=== PATIENT | male | born 1990 | race Caucasian/White ===

== ENCOUNTER 2017-11-03 07:30 | Emergency (ER) | payer MEDICAID | END 2017-11-03 08:03 | disposition home or self-care (01) | LOC: D.ER 07:30 | DX: K02.9 Dental caries, unspecified (principal); K08.89 Other specified disorders of teeth and supporting structures ==

== ENCOUNTER 2017-11-19 09:10 | Emergency (ER) | payer MEDICAID | END 2017-11-19 09:52 | disposition home or self-care (01) | LOC: D.ER 09:10 | DX: K12.2 Cellulitis and abscess of mouth (principal); K02.9 Dental caries, unspecified; F17.200 Nicotine dependence, unspecified, uncomplicated ==